=== PATIENT | male | born 1980 | race Caucasian/White ===

== ENCOUNTER 2019-02-18 21:11 | Emergency (ER) | payer MEDICAID ==
[~2019-02-18] VITALS: Ht 188 cm; Wt 92.5 kg
[~2019-02-18 21:11] MED LIST: DIPH25CA83 PO; INSU100V36 SQ; OMEP40CA37 PO; ONDA4TAB6 PO
[2019-02-18 21:20] VITALS: BP 144/80
== END 2019-02-18 22:47 | disposition home or self-care (01) ==
LOC: ER 21:11
DX: E10.649 Type 1 diabetes mellitus with hypoglycemia without coma (principal); F10.99 Alcohol use, unspecified with unspecified alcohol-induced disorder; F11.90 Opioid use, unspecified, uncomplicated; Z56.0 Unemployment, unspecified; Z79.4 Long term (current) use of insulin; Z79.899 Other long term (current) drug therapy; Y90.9 Presence of alcohol in blood, level not specified
CPT/HCPCS: 82948; 99282